=== PATIENT | male | born 1945 | race African-American/Black ===

== ENCOUNTER 2021-10-22 15:33 | Emergency (ER) | payer MEDICARE, OTHER ==
[~2021-10-22] VITALS: Ht 180.3 cm; Wt 91.0 kg
[2021-10-22 15:47] VITALS: BP 132/73
[2021-10-24] MEDS ORDERED: ATEN50TA PO (02:16)
[2021-10-24] MEDS ORDERED: HYDR100T26 PO (02:16)
[2021-10-24] MEDS ORDERED: PRAV40TA58 PO (02:16)
[2021-10-24] MEDS ORDERED: AMLO10TA80 PO (02:16)
[2021-10-24] MEDS ORDERED: GLIP10TA10 PO (02:16)
[2021-10-24] MEDS ORDERED: GABA800T97 PO (02:16)
[2021-10-24] MEDS ORDERED: FINA1TAB18 PO (02:16)
[2021-10-24] MEDS ORDERED: OMEP20TA23 PO (02:16)
[2021-10-24] MEDS ORDERED: LEVO5TAB13 PO (02:16)
[2021-10-24] MEDS ORDERED: TERA10CA4 PO (02:16)
[2021-10-24] MEDS ORDERED: SITA100T11 PO (02:16)
[2021-10-24] MEDS ORDERED: INSU100I24 SQ (02:16)
[2021-10-24] MEDS ORDERED: BENA40TA91 PO (02:16)
[2021-10-25] MEDS ORDERED: CLIN-194 MT (12:57)
== END 2021-10-22 20:40 | disposition left against medical advice (07) ==
LOC: ER 15:33
DX: R07.2 Precordial pain (principal); L02.213 Cutaneous abscess of chest wall; I10 Essential (primary) hypertension; E11.9 Type 2 diabetes mellitus without complications
CPT/HCPCS: 71045; 99283